=== PATIENT | female | born 1940 | race Caucasian/White ===

== ENCOUNTER 2020-05-04 11:48 | Outpatient (CLI) | payer MEDICARE, SELFPAY ==
--- NOTE | 2020-05-04 12:15 | XRR_ITS ---
PROCEDURE INFORMATION: Exam: XR Abdomen, 1 View Exam date and time: 05/04/2020 12:11 PM Age: 79 years old Clinical indication: Condition or disease; Kidney or ureter condition; Other: Kidney stone; Additional info: Ureteral calculus TECHNIQUE: Imaging protocol: XR of the abdomen. Views: Frontal supine view of the abdomen. 1 View. COMPARISON: CR KUB (Abdomen) [id number] 08/05/2019 11:36 AM FINDINGS: Gastrointestinal tract: Prominent stool, without significant bowel dilatation. Intraperitoneal space: Stable punctate pelvic calcifications. Bones/joints: Scoliosis, degenerative change, and vacuum discs. When correlating with the previous study, no significant interval changes are present. XR/XR KUB [id number] IMPRESSION: Stable appearance of the abdomen, not significantly changed from 08/05/19.
== END 2020-05-04 11:49 | disposition home or self-care (01) ==
LOC: RAD 11:53
PROVIDERS: PCP Family Medicine; Visit Provider Urology
DX: N20.1 Calculus of ureter (principal)
CPT/HCPCS: 74018; 81001

== ENCOUNTER 2022-05-04 13:44 | Outpatient (CLI) | payer MEDICARE, SELFPAY ==
[2022-05-04 14:21] LABS: Alanine Aminotransferase 24 U/L (0-33); Albumin Level 4.7 g/dL (3.5-5.2); Alkaline Phosphatase 114 IU/L (35-105); Aspartate Amino Transferase 20 U/L (0-32); Blood Urea Nitrogen 15 mg/dL (8-23); Calcium 9.5 mg/dL (8.5-10.5); Carbon Dioxide 28 mmol/L (22-29); Chloride 103 mmol/L (98-107); Chol HDL Ratio 2.54 mg/dL (0.0-4.40); Cholesterol 155 mg/dL (0-200); Globulin 2.7 g/dL (1.3-4.6); Glucose 105 mg/dL (65-115); HDL Cholesterol 61 mg/dL (60-100); LDL Cholesterol Calculated 56 mg/dL (50-129); LDL HDL Ratio 0.92 RATIO (0.00-3.22); Osmolality Calculated 295 mOsm/kg (285-295); Sodium 142 mmol/L (136-145); Total Bilirubin 0.4 mg/dL (0.15-1.2); Total Protein 7.4 g/dL (6.6-8.7); Triglycerides 190 mg/dL (0-150)
[2022-05-04 14:25] LABS: Anion Gap 15.5 (5-19); Potassium 4.5 mmol/L (3.5-5.1)
== END 2022-05-04 13:45 | disposition home or self-care (01) ==
LOC: LAB 13:47
PROVIDERS: PCP Family Medicine; Visit Provider Nurse Practitioner
DX: I35.0 Nonrheumatic aortic (valve) stenosis (principal); Z79.899 Other long term (current) drug therapy
CPT/HCPCS: 36415; 80048; 80053; 80061

== ENCOUNTER 2022-12-19 15:22 | Outpatient (CLI) | payer MEDICARE, SELFPAY ==
[2022-12-19 16:59] LABS: INR 1.14 (0.8-1.2)
== END 2022-12-19 15:23 | disposition home or self-care (01) ==
PROVIDERS: PCP Family Medicine; Visit Provider Internal Medicine Cardiovascular Disease
DX: Z01.89 Encounter for other specified special examinations (principal)
CPT/HCPCS: 36415; 85610

== ENCOUNTER 2022-12-24 07:57 | Outpatient (CLI) | payer MEDICARE, SELFPAY ==
[2022-12-24 08:35] LABS: INR 2.62 (0.8-1.2)
== END 2022-12-24 07:58 | disposition home or self-care (01) ==
PROVIDERS: PCP Family Medicine; Visit Provider Internal Medicine Cardiovascular Disease
DX: Z79.01 Long term (current) use of anticoagulants (principal); I25.5 Ischemic cardiomyopathy
CPT/HCPCS: 36415; 85610

== ENCOUNTER 2022-12-31 07:47 | Outpatient (CLI) | payer MEDICARE, SELFPAY ==
[2022-12-31 08:25] LABS: INR 3.46 (0.8-1.2)
== END 2022-12-31 07:48 | disposition home or self-care (01) ==
PROVIDERS: PCP Family Medicine; Visit Provider Internal Medicine Cardiovascular Disease
DX: Z79.01 Long term (current) use of anticoagulants (principal); I25.5 Ischemic cardiomyopathy; I48.91 Unspecified atrial fibrillation
CPT/HCPCS: 36415; 85610

== ENCOUNTER 2023-01-07 07:55 | Outpatient (CLI) | payer MEDICARE, SELFPAY ==
[2023-01-07 08:40] LABS: INR 3.77 (0.8-1.2)
== END 2023-01-07 07:56 | disposition home or self-care (01) ==
PROVIDERS: PCP Family Medicine; Visit Provider Internal Medicine Cardiovascular Disease
DX: I25.5 Ischemic cardiomyopathy (principal); I48.91 Unspecified atrial fibrillation; Z79.01 Long term (current) use of anticoagulants
CPT/HCPCS: 85610

== ENCOUNTER 2023-01-14 09:09 | Outpatient (RCR) | payer MEDICARE, SELFPAY ==
[2023-01-14 10:19] LABS: INR 2.87 (0.8-1.2)
== END 2023-02-08 23:59 | disposition home or self-care (01) ==
LOC: LAB 09:09
PROVIDERS: PCP Family Medicine; Visit Provider Internal Medicine Cardiovascular Disease
DX: I25.5 Ischemic cardiomyopathy (principal)
CPT/HCPCS: 36415; 85610

== ENCOUNTER 2023-01-21 08:32 | Outpatient (CLI) | payer MEDICARE, SELFPAY ==
[2023-01-21 09:15] LABS: INR 3.08 (0.8-1.2)
== END 2023-01-21 08:33 | disposition home or self-care (01) ==
PROVIDERS: PCP Family Medicine
DX: I25.5 Ischemic cardiomyopathy (principal); I48.91 Unspecified atrial fibrillation; Z79.01 Long term (current) use of anticoagulants
CPT/HCPCS: 85610

== ENCOUNTER 2023-01-28 08:47 | Outpatient (CLI) | payer MEDICARE, SELFPAY ==
[2023-01-28 09:39] LABS: INR 2.81 (0.8-1.2)
== END 2023-01-28 08:48 | disposition home or self-care (01) ==
PROVIDERS: Internal Medicine Cardiovascular Disease; PCP Family Medicine
DX: I25.5 Ischemic cardiomyopathy (principal)
CPT/HCPCS: 85610

== ENCOUNTER 2023-02-11 09:04 | Outpatient (CLI) | payer MEDICARE, SELFPAY ==
[2023-02-11 09:44] LABS: INR 2.11 (0.8-1.2)
== END 2023-02-11 09:05 | disposition home or self-care (01) ==
LOC: LAB 09:10
PROVIDERS: PCP Family Medicine; Visit Provider Internal Medicine Cardiovascular Disease
DX: I25.5 Ischemic cardiomyopathy (principal); I48.91 Unspecified atrial fibrillation; Z79.01 Long term (current) use of anticoagulants
CPT/HCPCS: 36415; 85610

== ENCOUNTER 2023-03-11 08:25 | Outpatient (CLI) | payer MEDICARE, SELFPAY ==
[2023-03-11 09:26] LABS: INR 2.89 (0.8-1.2)
== END 2023-03-11 08:26 | disposition home or self-care (01) ==
LOC: LAB 08:30
PROVIDERS: PCP Family Medicine
DX: I25.5 Ischemic cardiomyopathy (principal)
CPT/HCPCS: 36415; 85610

== ENCOUNTER 2023-03-20 08:17 | Outpatient (CLI) | payer MEDICARE, SELFPAY ==
[2023-03-20 09:01] LABS: Anion Gap 15.7 (5-19); Blood Urea Nitrogen 22 mg/dL (8-23); Calcium 8.2 mg/dL (8.5-10.5); Carbon Dioxide 23 mmol/L (22-29); Chloride 107 mmol/L (98-107); Glucose 122 mg/dL (65-115); Osmolality Calculated 297 mOsm/kg (285-295); Potassium 4.7 mmol/L (3.5-5.1); Sodium 141 mmol/L (136-145)
== END 2023-03-20 08:18 | disposition home or self-care (01) ==
LOC: LAB 08:17
PROVIDERS: PCP Family Medicine; Visit Provider Nurse Practitioner Acute Care
DX: I50.42 Chronic combined systolic (congestive) and diastolic (congestive) heart failure (principal)
CPT/HCPCS: 80048

== ENCOUNTER 2023-04-09 08:40 | Outpatient (CLI) | payer MEDICARE, SELFPAY ==
[2023-04-09 09:09] LABS: INR 1.77 (0.8-1.2)
== END 2023-04-09 08:41 | disposition home or self-care (01) ==
LOC: LAB 08:42
PROVIDERS: PCP Family Medicine; Visit Provider Internal Medicine Cardiovascular Disease
DX: I25.5 Ischemic cardiomyopathy (principal)
CPT/HCPCS: 36415; 85610

== ENCOUNTER 2023-05-07 08:31 | Outpatient (CLI) | payer MEDICARE, SELFPAY ==
[2023-05-07 09:53] LABS: INR 2.36 (0.8-1.2)
== END 2023-05-07 08:32 | disposition home or self-care (01) ==
PROVIDERS: PCP Family Medicine; Visit Provider Internal Medicine Cardiovascular Disease
DX: I25.5 Ischemic cardiomyopathy (principal); I42.0 Dilated cardiomyopathy; I48.91 Unspecified atrial fibrillation; Z79.01 Long term (current) use of anticoagulants
CPT/HCPCS: 36415; 85610

== ENCOUNTER 2023-06-07 08:00 | Outpatient (CLI) | payer MEDICARE, SELFPAY ==
[2023-06-07 08:50] LABS: INR 2.04 (0.8-1.2)
== END 2023-06-07 08:01 | disposition home or self-care (01) ==
PROVIDERS: PCP Family Medicine; Visit Provider Internal Medicine Cardiovascular Disease
DX: I25.5 Ischemic cardiomyopathy (principal); I48.91 Unspecified atrial fibrillation; Z79.01 Long term (current) use of anticoagulants
CPT/HCPCS: 36415; 85610

== ENCOUNTER 2023-07-30 08:16 | Outpatient (CLI) | payer MEDICARE, SELFPAY ==
[2023-07-30 08:46] LABS: INR 1.69 (0.8-1.2)
== END 2023-07-30 08:17 | disposition home or self-care (01) ==
PROVIDERS: PCP Family Medicine; Visit Provider Internal Medicine Cardiovascular Disease
DX: I25.5 Ischemic cardiomyopathy (principal)
CPT/HCPCS: 36415; 85610

== ENCOUNTER 2023-09-09 08:44 | Outpatient (CLI) | payer MEDICARE, SELFPAY ==
[2023-09-09 09:23] LABS: INR 3.93 (0.8-1.2)
== END 2023-09-09 08:45 | disposition home or self-care (01) ==
PROVIDERS: PCP Family Medicine; Visit Provider Internal Medicine Cardiovascular Disease
DX: I25.5 Ischemic cardiomyopathy (principal)
CPT/HCPCS: 36415; 85610

== ENCOUNTER 2023-10-07 08:29 | Outpatient (CLI) | payer MEDICARE, SELFPAY ==
[2023-10-07 09:05] LABS: INR 1.73 (0.8-1.2)
== END 2023-10-07 08:30 | disposition home or self-care (01) ==
LOC: LAB 08:36
PROVIDERS: PCP Family Medicine; Visit Provider Internal Medicine Cardiovascular Disease
DX: I25.5 Ischemic cardiomyopathy (principal); I42.0 Dilated cardiomyopathy; I48.91 Unspecified atrial fibrillation; Z79.01 Long term (current) use of anticoagulants
CPT/HCPCS: 36415; 85610

== ENCOUNTER 2023-10-21 08:08 | Outpatient (CLI) | payer MEDICARE, SELFPAY ==
[2023-10-21 08:50] LABS: INR 3.64 (0.8-1.2)
== END 2023-10-21 08:09 | disposition home or self-care (01) ==
LOC: LAB 08:09
PROVIDERS: PCP Family Medicine; Visit Provider Internal Medicine Cardiovascular Disease
DX: I25.5 Ischemic cardiomyopathy (principal); I42.0 Dilated cardiomyopathy; I48.91 Unspecified atrial fibrillation; Z79.01 Long term (current) use of anticoagulants
CPT/HCPCS: 36415; 85610

== ENCOUNTER 2023-10-28 08:48 | Outpatient (CLI) | payer MEDICARE, SELFPAY ==
[2023-10-28 09:30] LABS: INR 2.67 (0.8-1.2)
== END 2023-10-28 08:49 | disposition home or self-care (01) ==
LOC: LAB 08:50
PROVIDERS: PCP Family Medicine; Visit Provider Internal Medicine Cardiovascular Disease
DX: I25.5 Ischemic cardiomyopathy (principal); I48.91 Unspecified atrial fibrillation; Z79.01 Long term (current) use of anticoagulants
CPT/HCPCS: 36415; 85610

== ENCOUNTER 2023-12-09 09:19 | Outpatient (CLI) | payer MEDICARE, SELFPAY ==
[2023-12-09 10:11] LABS: INR 2.42 (0.8-1.2)
== END 2023-12-09 09:20 | disposition home or self-care (01) ==
PROVIDERS: PCP Family Medicine; Visit Provider Internal Medicine Cardiovascular Disease
DX: I25.5 Ischemic cardiomyopathy (principal); I42.0 Dilated cardiomyopathy; I48.91 Unspecified atrial fibrillation; Z79.01 Long term (current) use of anticoagulants
CPT/HCPCS: 36415; 85610

== ENCOUNTER 2024-01-07 08:55 | Outpatient (CLI) | payer MEDICARE, SELFPAY ==
[2024-01-07 10:12] LABS: INR 2.04 (0.8-1.2)
== END 2024-01-07 08:56 | disposition home or self-care (01) ==
LOC: LAB 09:00
PROVIDERS: PCP Family Medicine; Visit Provider Internal Medicine Cardiovascular Disease
DX: I25.5 Ischemic cardiomyopathy (principal); I42.0 Dilated cardiomyopathy; I48.91 Unspecified atrial fibrillation; Z79.01 Long term (current) use of anticoagulants
CPT/HCPCS: 36415; 85610

== ENCOUNTER 2024-02-06 08:27 | Outpatient (CLI) | payer MEDICARE, SELFPAY ==
[2024-02-06 09:12] LABS: INR 2.21 (0.8-1.2)
== END 2024-02-06 08:28 | disposition home or self-care (01) ==
LOC: LAB 08:30
PROVIDERS: PCP Family Medicine; Visit Provider Internal Medicine Cardiovascular Disease
DX: I25.5 Ischemic cardiomyopathy (principal)
CPT/HCPCS: 36415; 85610

== ENCOUNTER 2024-03-09 09:16 | Outpatient (CLI) | payer MEDICARE, SELFPAY ==
[2024-03-09 10:23] LABS: INR 3.56 (0.8-1.2)
[2024-03-09 10:29] LABS: Alanine Aminotransferase 25 U/L (0-33); Albumin Level 3.8 g/dL (3.5-5.2); Alkaline Phosphatase 117 U/L (35-105); Anion Gap 13.6 (5-19); Aspartate Amino Transferase 27 U/L (0-32); Blood Urea Nitrogen 28 mg/dL (8-23); Calcium 8.2 mg/dL (8.5-10.5); Carbon Dioxide 25 mmol/L (22-29); Chloride 109 mmol/L (98-107); Chol HDL Ratio 2.56 mg/dL (0.0-4.40); Cholesterol 123 mg/dL (0-200); Globulin 2.5 g/dL (1.3-4.6); Glucose 148 mg/dL (65-115); HDL Cholesterol 48 mg/dL (60-100); LDL Cholesterol Calculated 56 mg/dL (50-129); LDL HDL Ratio 1.17 RATIO (0.00-3.22); Osmolality Calculated 304 mOsm/kg (285-295); Potassium 4.6 mmol/L (3.5-5.1); Sodium 143 mmol/L (136-145); Total Bilirubin 0.4 mg/dL (0.15-1.2); Total Protein 6.3 g/dL (6.6-8.7); Triglycerides 96 mg/dL (0-150)
== END 2024-03-09 09:17 | disposition home or self-care (01) ==
LOC: LAB 09:19
PROVIDERS: PCP Family Medicine; Visit Provider Nurse Practitioner Acute Care
DX: I25.10 Atherosclerotic heart disease of native coronary artery without angina pectoris (principal); E78.5 Hyperlipidemia, unspecified; I25.5 Ischemic cardiomyopathy
CPT/HCPCS: 36415; 80053; 80061; 85610

== ENCOUNTER 2024-03-16 07:35 | Outpatient (CLI) | payer MEDICARE, SELFPAY ==
[2024-03-16 08:22] LABS: INR 2.07 (0.8-1.2)
== END 2024-03-16 07:36 | disposition home or self-care (01) ==
LOC: LAB 07:38
PROVIDERS: PCP Family Medicine; Visit Provider Family Medicine
DX: I25.5 Ischemic cardiomyopathy (principal)
CPT/HCPCS: 85610

== ENCOUNTER 2024-03-23 09:02 | Outpatient (CLI) | payer MEDICARE, SELFPAY ==
[2024-03-23 09:36] LABS: INR 2.59 (0.8-1.2)
== END 2024-03-23 09:03 | disposition home or self-care (01) ==
LOC: LAB 09:06
PROVIDERS: PCP Family Medicine; Visit Provider Internal Medicine Cardiovascular Disease
DX: I25.5 Ischemic cardiomyopathy (principal); I42.0 Dilated cardiomyopathy; I48.91 Unspecified atrial fibrillation; Z79.01 Long term (current) use of anticoagulants
CPT/HCPCS: 36415; 85610

== ENCOUNTER 2024-04-07 08:11 | Outpatient (CLI) | payer MEDICARE, SELFPAY | END 2024-04-07 08:12 | disposition home or self-care (01) | LOC: LAB 08:15 | PROVIDERS: PCP Family Medicine; Visit Provider Internal Medicine Cardiovascular Disease | DX: I25.5 Ischemic cardiomyopathy (principal) | CPT/HCPCS: 36415; 85610 ==

== ENCOUNTER 2024-04-20 08:06 | Outpatient (CLI) | payer MEDICARE, SELFPAY ==
[2024-04-20 09:21] LABS: INR 2.09 (0.8-1.2)
== END 2024-04-20 08:07 | disposition home or self-care (01) ==
LOC: LAB 08:11
PROVIDERS: PCP Family Medicine
DX: I25.5 Ischemic cardiomyopathy (principal); I42.0 Dilated cardiomyopathy; I48.91 Unspecified atrial fibrillation
CPT/HCPCS: 36415; 85610

== ENCOUNTER 2024-05-21 10:08 | Outpatient (CLI) | payer MEDICARE, SELFPAY | END 2024-05-21 10:09 | disposition home or self-care (01) | LOC: LAB 10:13 | PROVIDERS: PCP Family Medicine; Visit Provider Internal Medicine Cardiovascular Disease | DX: I25.5 Ischemic cardiomyopathy (principal); I48.91 Unspecified atrial fibrillation; Z79.01 Long term (current) use of anticoagulants | CPT/HCPCS: 36415; 85610 ==

== ENCOUNTER 2024-06-10 08:51 | Outpatient (CLI) | payer MEDICARE, SELFPAY ==
[2024-06-10 09:36] LABS: INR 2.18 (0.8-1.2)
== END 2024-06-10 08:52 | disposition home or self-care (01) ==
LOC: LAB 08:54
PROVIDERS: PCP Family Medicine; Visit Provider Internal Medicine Cardiovascular Disease
DX: I25.5 Ischemic cardiomyopathy (principal)
CPT/HCPCS: 85610

== ENCOUNTER 2024-07-09 08:46 | Outpatient (CLI) | payer MEDICARE, SELFPAY ==
[2024-07-09 09:20] LABS: INR 2.38 (0.8-1.2)
== END 2024-07-09 08:47 | disposition home or self-care (01) ==
LOC: LAB 08:51
PROVIDERS: PCP Family Medicine; Visit Provider Internal Medicine Cardiovascular Disease
DX: I25.5 Ischemic cardiomyopathy (principal); I48.91 Unspecified atrial fibrillation; Z79.01 Long term (current) use of anticoagulants
CPT/HCPCS: 36415; 85610

== ENCOUNTER 2024-08-12 08:36 | Outpatient (CLI) | payer MEDICARE, SELFPAY ==
[2024-08-12 09:09] LABS: INR 1.86 (0.8-1.2)
== END 2024-08-12 08:37 | disposition home or self-care (01) ==
PROVIDERS: PCP Family Medicine; Visit Provider Internal Medicine Cardiovascular Disease
DX: I25.5 Ischemic cardiomyopathy (principal)
CPT/HCPCS: 36415; 85610

== ENCOUNTER 2024-09-28 09:15 | Outpatient (CLI) | payer MEDICARE, SELFPAY ==
[2024-09-28 10:26] LABS: INR 2.76 (0.8-1.2)
== END 2024-09-28 09:16 | disposition home or self-care (01) ==
LOC: LAB 09:18
PROVIDERS: PCP Family Medicine; Visit Provider Internal Medicine Cardiovascular Disease
DX: I25.5 Ischemic cardiomyopathy (principal); I42.0 Dilated cardiomyopathy; I48.91 Unspecified atrial fibrillation; Z79.01 Long term (current) use of anticoagulants
CPT/HCPCS: 36415; 85610

== ENCOUNTER 2024-10-26 08:37 | Outpatient (CLI) | payer MEDICARE, SELFPAY ==
[2024-10-26 10:03] LABS: INR 2.82 (0.8-1.2)
== END 2024-10-26 08:38 | disposition home or self-care (01) ==
LOC: LAB 08:40
PROVIDERS: PCP Family Medicine; Visit Provider Internal Medicine Cardiovascular Disease
DX: I25.5 Ischemic cardiomyopathy (principal); I42.0 Dilated cardiomyopathy; I48.91 Unspecified atrial fibrillation; Z79.01 Long term (current) use of anticoagulants
CPT/HCPCS: 36415; 85610

== ENCOUNTER 2024-11-25 08:41 | Outpatient (CLI) | payer MEDICARE, SELFPAY ==
[2024-11-25 09:29] LABS: INR 1.42 (0.8-1.2)
== END 2024-11-25 08:42 | disposition home or self-care (01) ==
LOC: LAB 08:49
PROVIDERS: PCP Family Medicine; Visit Provider Internal Medicine Cardiovascular Disease
DX: I25.5 Ischemic cardiomyopathy (principal); Z79.01 Long term (current) use of anticoagulants
CPT/HCPCS: 36415; 85610

== ENCOUNTER 2024-12-11 08:50 | Outpatient (CLI) | payer MEDICARE, SELFPAY ==
[2024-12-11 09:49] LABS: INR 2.21 (0.8-1.2)
== END 2024-12-11 08:51 | disposition home or self-care (01) ==
PROVIDERS: PCP Family Medicine; Referring Provider Internal Medicine Cardiovascular Disease; Visit Provider Family Medicine
DX: I25.5 Ischemic cardiomyopathy (principal)
CPT/HCPCS: 36415; 85610

== ENCOUNTER 2024-12-21 09:12 | Outpatient (CLI) | payer MEDICARE, SELFPAY ==
[2024-12-21 09:50] LABS: INR 2.65 (0.8-1.2)
== END 2024-12-21 09:13 | disposition home or self-care (01) ==
LOC: LAB 09:14
PROVIDERS: PCP Family Medicine; Visit Provider Internal Medicine Cardiovascular Disease
DX: I48.91 Unspecified atrial fibrillation (principal); Z79.01 Long term (current) use of anticoagulants
CPT/HCPCS: 36415; 85610

== ENCOUNTER 2025-01-14 08:27 | Outpatient (CLI) | payer MEDICARE, SELFPAY ==
[2025-01-14 09:16] LABS: INR 1.96 (0.8-1.2)
== END 2025-01-14 08:28 | disposition home or self-care (01) ==
LOC: LAB 08:28
PROVIDERS: PCP Family Medicine; Visit Provider Internal Medicine Cardiovascular Disease
DX: I48.91 Unspecified atrial fibrillation (principal)
CPT/HCPCS: 36415; 85610

== ENCOUNTER 2025-02-25 12:19 | Outpatient (CLI) | payer MEDICARE, SELFPAY ==
[2025-02-25 13:07] LABS: INR 1.89 (0.8-1.2)
== END 2025-02-25 12:20 | disposition home or self-care (01) ==
PROVIDERS: PCP Family Medicine; Visit Provider Internal Medicine Cardiovascular Disease
DX: Z79.01 Long term (current) use of anticoagulants (principal)
CPT/HCPCS: 36415; 85610

== ENCOUNTER 2025-03-26 08:46 | Outpatient (CLI) | payer MEDICARE, SELFPAY ==
[2025-03-26 09:48] LABS: INR 2.21 (0.8-1.2)
== END 2025-03-26 08:47 | disposition home or self-care (01) ==
PROVIDERS: PCP Family Medicine; Visit Provider Internal Medicine Cardiovascular Disease
DX: I48.91 Unspecified atrial fibrillation (principal)
CPT/HCPCS: 36415; 85610

== ENCOUNTER 2025-05-13 07:53 | Outpatient (CLI) | payer MEDICARE, SELFPAY ==
[2025-05-13 08:49] LABS: INR 2.61 (0.8-1.2); Prothrombin Time 29.40 SECONDS (12.1-14.9)
== END 2025-05-13 07:54 | disposition home or self-care (01) ==
LOC: LAB 07:54
PROVIDERS: PCP Family Medicine; Visit Provider Internal Medicine Cardiovascular Disease
DX: I48.91 Unspecified atrial fibrillation (principal)
CPT/HCPCS: 36415; 85610

== ENCOUNTER 2025-06-10 08:30 | Outpatient (CLI) | payer MEDICARE, SELFPAY ==
[2025-06-10 09:17] LABS: INR 2.04 (0.8-1.2); Prothrombin Time 24.20 SECONDS (12.1-14.9)
== END 2025-06-10 08:31 | disposition home or self-care (01) ==
PROVIDERS: PCP Family Medicine; Visit Provider Internal Medicine Cardiovascular Disease
DX: I48.91 Unspecified atrial fibrillation (principal); Z79.01 Long term (current) use of anticoagulants
CPT/HCPCS: 36415; 85610

== ENCOUNTER 2025-07-15 08:55 | Outpatient (CLI) | payer MEDICARE, SELFPAY ==
[2025-07-15 09:43] LABS: INR 1.86 (0.8-1.2); Prothrombin Time 22.60 SECONDS (12.1-14.9)
== END 2025-07-15 08:56 | disposition home or self-care (01) ==
LOC: LAB 08:57
PROVIDERS: PCP Family Medicine; Visit Provider Internal Medicine Cardiovascular Disease
DX: I48.91 Unspecified atrial fibrillation (principal); Z79.01 Long term (current) use of anticoagulants
CPT/HCPCS: 36415; 85610

== ENCOUNTER 2025-08-12 07:36 | Outpatient (CLI) | payer MEDICARE, SELFPAY ==
[2025-08-12 08:06] LABS: INR 1.61 (0.8-1.2); Prothrombin Time 20.10 SECONDS (12.1-14.9)
== END 2025-08-12 07:37 | disposition home or self-care (01) ==
LOC: LAB 07:40
PROVIDERS: PCP Family Medicine; Visit Provider Internal Medicine Cardiovascular Disease
DX: I48.91 Unspecified atrial fibrillation (principal); Z79.01 Long term (current) use of anticoagulants
CPT/HCPCS: 36415; 85610

== ENCOUNTER 2025-08-23 09:03 | Outpatient (CLI) | payer MEDICARE, SELFPAY ==
[2025-08-23 10:59] LABS: INR 3.61 (0.8-1.2); Prothrombin Time 37.90 SECONDS (12.1-14.9)
[2025-08-23 11:05] LABS: Cholesterol 133 mg/dL (0-200); HDL Cholesterol 60 mg/dL (60-100); Triglycerides 92 mg/dL (0-150)
== END 2025-08-23 09:04 | disposition home or self-care (01) ==
PROVIDERS: PCP Family Medicine; Visit Provider Nurse Practitioner Family
DX: I48.91 Unspecified atrial fibrillation (principal); E11.42 Type 2 diabetes mellitus with diabetic polyneuropathy; E78.5 Hyperlipidemia, unspecified
CPT/HCPCS: 80061; 85610

== ENCOUNTER 2025-09-13 08:23 | Outpatient (CLI) | payer MEDICARE, SELFPAY ==
[2025-09-13 09:10] LABS: INR 2.72 (0.8-1.2); Prothrombin Time 30.40 SECONDS (12.1-14.9)
== END 2025-09-13 08:24 | disposition home or self-care (01) ==
PROVIDERS: PCP Family Medicine; Visit Provider Internal Medicine Cardiovascular Disease
DX: I48.91 Unspecified atrial fibrillation (principal); Z79.01 Long term (current) use of anticoagulants
CPT/HCPCS: 36415; 85610

== ENCOUNTER 2025-09-27 14:59 | Outpatient (CLI) | payer MEDICARE, SELFPAY ==
[2025-09-27 15:32] LABS: INR 2.59 (0.8-1.2); Prothrombin Time 29.20 SECONDS (12.1-14.9)
== END 2025-09-27 15:00 | disposition home or self-care (01) ==
PROVIDERS: PCP Family Medicine; Visit Provider Internal Medicine Cardiovascular Disease
DX: I48.91 Unspecified atrial fibrillation (principal); Z79.01 Long term (current) use of anticoagulants
CPT/HCPCS: 36415; 85610

== ENCOUNTER 2025-11-08 08:27 | Outpatient (CLI) | payer MEDICARE, SELFPAY ==
[2025-11-08 09:31] LABS: INR 2.38 (0.8-1.2); Prothrombin Time 27.40 SECONDS (12.1-14.9)
== END 2025-11-08 08:28 | disposition home or self-care (01) ==
PROVIDERS: PCP Family Medicine; Visit Provider Internal Medicine Cardiovascular Disease
DX: I48.91 Unspecified atrial fibrillation (principal); Z79.01 Long term (current) use of anticoagulants
CPT/HCPCS: 85610